=== PATIENT | male | born 1955 | race Two or more races ===

== ENCOUNTER 2019-01-11 08:45 | Inpatient (IN) | payer OTHER ==
[~2019-01-11] VITALS: Ht 180.3 cm; Wt 148.3 kg
--- NOTE | 2019-01-11 09:23 | NUR ---
SE RECIBE PTE. ALERTA Y ORIENTADO REFIERE QUE ESTA RETENIENDO LIQUIDOS.SE OBSERVA EDEMA GENERALIZADO.SE LE REALIZA EKG Y SE LE NOTIFICA A DRA. MINER EN TURNO. SE UBICA PTE.EN MONITOR CARDIACO.
--- NOTE | 2019-01-11 09:33 | NUR ---
PACIENTE ALERTA Y ORIENTADO POR YASMIN ESFERAS EN CAMA CONECTADO A MONITOR CARDIACO CON OXIMETRIA DE PUL[place]. MR. Moore NATALIE ORIENTA A PACIENTE SOBRE PROCEDIMIENTO Y TX, REFIERE ENTENDER. EXTRAE MUESTRAS DE LABORATORIO CON MEDIDAS ASEPTICAS Y INICIA CANALIZACION EN BRAZO RT. SE ENVIA MUESTRAS DE LABORATORIO.
--- NOTE | 2019-01-11 15:03 | NUR ---
SE RECIBE PTE ALERTA Y ORIENTADO EN LAS 3 ESFERAS EN CAMA CON BARANDAS ELEVADAS POR SEGURIDAD. CONECTADO A MONITOR CARDIACO. H/L, AREA FRANSISCO DE EDEMA Y ERITEMA. PENDIENTE CT ABDOMEN/PELVICO A LAS 4:30PM. SE DANIEL A PTE EN CAMA CON BARANDAS ELEVADAS POR SEGURIDAD Y SE MANTIENE EN OBSERVACION.
--- NOTE | 2019-01-12 00:43 | NUR ---
SE RECIBE PACIENTE EN CAMA CON MEDIDAS DE SEGURIDAD LUCE ALERTA CONSCIENTE Y ORIENTADO X3 CONECTADO A MONITOR CARDIACO Y OXIMETRIA DE [place]. H/L PATENTE. PTE EN ESPERA DE CONSULTA POR EL DR. Gia SHETH.
[2019-02-08] MEDS ORDERED: SPIRONOLACTONE25 MG PO (16:28)
[2019-02-08] MEDS ORDERED: PROPRANOLOL HCL20 MG PO (16:28)
[2019-02-08] MEDS ORDERED: PROPRANOLOL HCL40 MG PO (18:00)
== END 2019-02-08 19:49 | disposition home or self-care (01) | DRG 433 ==
LOC: ER 08:45 → MEDJ 01-12 08:46 → MEDI 01-12 08:46 → MEDJ 01-15 11:27
PROVIDERS: ADMIT Internal Medicine
PROC: 0W9G3ZZ Drainage of Peritoneal Cavity, Percutaneous Approach (ICD-10-PCS; principal; 2019-01-13)
PROC: 8E0ZXY6 Isolation (ICD-10-PCS; 2019-01-16)
PROC: 02HV33Z Insertion of Infusion Device into Superior Vena Cava, Percutaneous Approach (ICD-10-PCS; 2019-01-18)
PROC: BW40ZZZ Ultrasonography of Abdomen (ICD-10-PCS; 2019-01-26)
DX: K70.31 Alcoholic cirrhosis of liver with ascites (principal); N39.0 Urinary tract infection, site not specified; R65.10 Systemic inflammatory response syndrome (SIRS) of non-infectious origin without acute organ dysfunction; F10.231 Alcohol dependence with withdrawal delirium; D69.49 Other primary thrombocytopenia; E86.0 Dehydration; B95.2 Enterococcus as the cause of diseases classified elsewhere